=== PATIENT | female | born 1975 | race Caucasian/White ===

== ENCOUNTER 2022-07-06 08:53 | Outpatient (CLI) | payer OTHER | END 2022-07-06 09:15 | disposition home or self-care (01) | LOC: TOM 08:53 | PROVIDERS: ATTEND Surgery | DX: R10.31 Right lower quadrant pain (principal); N83.299 Other ovarian cyst, unspecified side ==

== ENCOUNTER → 2022-07-06 09:47 | Outpatient (CLI) | payer OTHER | END | disposition home or self-care (01) | LOC: LAB 09:47 | PROVIDERS: ATTEND Surgery | DX: R10.31 Right lower quadrant pain (principal) ==